=== PATIENT | female | born 1960 | race Caucasian/White ===

== ENCOUNTER 2017-10-11 11:25 | Emergency (ER) | payer MEDICARE ==
[~2017-10-11] VITALS: Ht 167.6 cm; Wt 75.0 kg
[2017-10-11 11:30] VITALS: BP 141/73; PULSE 49; RESP 18; TEMP 97.4; O2SAT 99
[2017-10-11] MEDS ORDERED: SODIUM CHLOR 0.9% 1000 ML INJ 1,000 ML IV SCH (11:48)
--- NOTE | 2017-10-11 11:55 | PD ---
HPI Chief Complaint: Flank/Kidney Pain Time Seen by Provider: 11:41 Travel History International Travel<30 days: No Contact w/Intl Traveler<30days: No Traveled to known affect area: No History of Present Illness HPI 57-year-old female presents to the emergency department for evaluation of epigastric and right upper quadrant abdominal pain. 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 She states she follows with a specialist in [place]. She is here for the winter. She will returning to [place] on October 21. She was going to wait to be seen when she went back [place], but states the pain worsened today. She states if she holds area , the pain will be slightly better, no exacerbating factors. Patient also reports history of lupus, fibromyalgia, narcolepsy. She currently rates the pain 9/10 without radiation. She reports history of hysterectomy, appendectomy , cholecystectomy. Moderate severity. PFSH Past Medical History Gastrointestinal Disorders: Yes ("LIVER ISSUES") Tetanus Vaccination: Unknown Influenza Vaccination: No ?: Not Past Surgical History Appendectomy: Yes Cholecystectomy: Yes Hysterectomy: Yes Social History Alcohol Use: No Tobacco Use: Yes Substance Use: No Allergies-Medications (Allergen,Severity, Reaction): Coded Allergies: aspirin (Verified Allergy, Unknown, 10/11/17) red dye (Verified Allergy, Unknown, 10/11/17) Reported Meds & Prescriptions Reported Meds & Active Scripts Active Active Prescriptions or Reported Medications Unobtainable Review of Systems Except as stated in HPI: all other systems reviewed are Neg Physical Exam Narrative GENERAL: Well-nourished, well-developed female patient, afebrile SKIN: Focused skin assessment warm/dry. HEAD: Normocephalic. Atraumatic EYES: No scleral icterus. No injection or drainage. NECK: Supple, trachea midline. No JVD or lymphadenopathy. CARDIOVASCULAR: Regular rate and rhythm without murmurs, gallops, or rubs. RESPIRATORY: Breath sounds equal bilaterally. No accessory muscle use. Lung sounds are clear to auscultation GASTROINTESTINAL: Abdomen soft and nondistended. Patient has tenderness over the epigastric and right upper quadrant MUSCULOSKELETAL: No cyanosis, or edema. BACK: Nontender without obvious deformity. No CVA tenderness. Data Data Last Documented VS Vital Signs Date Time Temp Pulse Resp B/P (MAP) Pulse Ox O2 Delivery O2 Flow Rate FiO2 10/11/17 17:06 48 16 112/68 (83) 97 Room Air 10/11/17 11:30 97.4 Orders Orders Complete Blood Count With Diff (10/11/17 11:48) Comprehensive Metabolic Panel (10/11/17 11:48) Lipase (10/11/17 11:48) Prothrombin Time / Inr (Pt) (10/11/17 11:48) Act Partial Throm Time (Ptt) (10/11/17 11:48) Urinalysis - C+S If Indicated (10/11/17 11:48) Iv Access Insert/Monitor (10/11/17 11:48) Ecg Monitoring (10/11/17 11:48) Oximetry (10/11/17 11:48) Morphine Inj (Morphine Inj) (10/11/17 12:00) Ondansetron Inj (Zofran Inj) (10/11/17 12:00) Sodium Chlor 0.9% 1000 Ml Inj (Ns 1000 M (10/11/17 11:48) Sodium Chloride 0.9% Flush (Ns Flush) (10/11/17 12:00) Electrocardiogram (10/11/17 11:48) Ct Abd/Pel W Iv Contrast(Rout) (10/11/17 ) Iohexol 350 Inj (Omnipaque 350 Inj) (10/11/17 16:41) Ed Discharge Order (10/11/17 17:14) Labs Laboratory Tests Test 10/11/17 12:00 White Blood Count 7.3 TH/MM3 Red Blood Count 4.31 MIL/MM3 Hemoglobin 13.7 GM/DL Hematocrit 39.6 % Mean Corpuscular Volume 91.9 FL Mean Corpuscular Hemoglobin 31.8 PG Mean Corpuscular Hemoglobin Concent 34.6 % Red Cell Distribution Width 12.7 % Platelet Count 215 TH/MM3 Mean Platelet Volume 8.3 FL Neutrophils (%) (Auto) 54.1 % Lymphocytes (%) (Auto) 34.1 % Monocytes (%) (Auto) 6.0 % Eosinophils (%) (Auto) 5.2 % Basophils (%) (Auto) 0.6 % Neutrophils # (Auto) 3.9 TH/MM3 Lymphocytes # (Auto) 2.5 TH/MM3 Monocytes # (Auto) 0.4 TH/MM3 Eosinophils # (Auto) 0.4 TH/MM3 Basophils # (Auto) 0.0 TH/MM3 CBC Comment DIFF FINAL Differential Comment Prothrombin Time 10.3 SEC Prothromb Time International Ratio 1.0 RATIO Activated Partial Thromboplast Time 25.9 SEC Urine Color YELLOW Urine Turbidity CLEAR Urine pH 6.5 Urine Specific [place] 1.011 Urine Protein NEG mg/dL Urine Glucose (UA) NEG mg/dL Urine Ketones NEG mg/dL Urine Occult Blood NEG Urine Nitrite NEG Urine Bilirubin NEG Urine Urobilinogen LESS THAN 2.0 MG/DL Urine Leukocyte Esterase NEG Urine RBC LESS THAN 1 /hpf Urine WBC LESS THAN 1 /hpf Urine Squamous Epithelial Cells 3 /hpf Urine Transitional Epithelial Cells <1 /hpf Urine Bacteria RARE /hpf Microscopic Urinalysis Comment CULT NOT INDICATED Blood Urea Nitrogen 12 MG/DL Creatinine 1.02 MG/DL Random Glucose 74 MG/DL Total Protein 7.2 GM/DL Albumin 3.6 GM/DL Calcium Level 8.5 MG/DL Alkaline Phosphatase 85 U/L Aspartate Amino Transf (AST/SGOT) 16 U/L Alanine Aminotransferase (ALT/SGPT) 20 U/L Total Bilirubin 0.4 MG/DL Sodium Level 143 MEQ/L Potassium Level 4.0 MEQ/L Chloride Level 106 MEQ/L Carbon Dioxide Level 28.8 MEQ/L Anion Gap 8 MEQ/L Estimat Glomerular Filtration Rate 56 ML/MIN Lipase 204 U/L MDM Medical Decision Making Medical Screen Exam Complete: Yes Emergency Medical Condition: Yes Medical Record Reviewed: Yes Interpretation(s) CT abdomen/pelvis - CONCLUSION: Negative for an acute process. History of cholecystectomy. No inflammatory changes identified. Differential Diagnosis Pancreatitis versus liver embolism versus UTI Narrative Course 57-year-old female presents to the emergency department for evaluation of epigastric and right upper quadrant pain. Patient does have history of cholecystectomy. EKG, CBC, CMP, lipase, PTT, PT/INR UA are ordered and pending. CT abdomen/pelvis with IV contrast is ordered and pending. Patient is given normal saline 1 L IV bolus, Zofran 4 mg IV, morphine 4 mg IV. EKG shows sinus bradycardia, heart rate 41, no acute ST changes. Patient reports history of bradycardia. CBC shows no acute abnormality. CMP shows no acute abnormality. Lipase is 204. Coags are unremarkable. UA is negative for acute infection. CT abdomen/pelvis is negative for acute process. I gave the patient a copy of her CT results. She is to follow-up with her specialist when she returns home. She is return here for any acute worsening symptoms. She verbalizes agreement. The patient was discharged in stable condition with instructions, including return instructions and follow up instructions. Diagnosis Primary Impression: Abdominal pain Qualified Codes: R10.11 - Right upper quadrant pain Referrals: Primary Care Physician call for appointment Patient Instructions: Abdominal Pain (ED), General Instructions Additional Instructions: [id number] ibuprofen every 6-8 hours as needed for pain. Follow-up with a primary care physician. Return to the emergency department for any acute worsening of symptoms. Med/Other Pt SpecificInfo: No Change to Meds Scripts Unable to Obtain Active Prescriptions or Reported Meds Disposition: 01 DISCHARGE HOME Condition: Stable Maria Luz Johnson Oct 11, 2017 11:55
[2017-10-11] MEDS ORDERED: SODIUM CHLORIDE 0.9% FLUSH 10 ML FLUSH IV FLUSH PRN (12:00)
[2017-10-11] MEDS ORDERED: ONDANSETRON HCL 4 MG/2 ML VIAL IVP ONE (12:00)
[2017-10-11] MEDS ORDERED: MORPHINE SULFATE 4 MG/ML INJ IV PUSH ONE (12:00)
[2017-10-11 12:08] VITALS: BP 136/64; PULSE 51; RESP 17; O2SAT 97
[2017-10-11 12:28] LABS: AUTOMATED NEUTROPHIL # 3.9 TH/MM3 (1.8-7.7); BASOPHIL % 0.6 % (0.0-2.0); EOSINOPHIL # 0.4 TH/MM3 (0-0.4); EOSINOPHIL % 5.2 % (0.0-4.0); HEMATOCRIT 39.6 % (35.0-46.0); HEMOGLOBIN 13.7 GM/DL (11.6-15.3); LYMPH % 34.1 % (9.0-44.0); LYMPHOCYTE # 2.5 TH/MM3 (1.0-4.8); MEAN CELL VOLUME 91.9 FL (80.0-100.0); MEAN CORPUSCULAR HEMOGLOBIN 31.8 PG (27.0-34.0); MEAN CORPUSCULAR HGB CONC 34.6 % (32.0-36.0); MEAN PLATELET VOLUME 8.3 FL (7.0-11.0); MONOCYTE # 0.4 TH/MM3 (0-0.9); NEUT % 54.1 % (16.0-70.0); PLATELET COUNT 215 TH/MM3 (150-450); RED BLOOD COUNT 4.31 MIL/MM3 (4.00-5.30); RED CELL DISTRIBUTION WIDTH 12.7 % (11.6-17.2); WHITE BLOOD COUNT 7.3 TH/MM3 (4.0-11.0)
[2017-10-11 12:38] LABS: PROTHROMBIN TIME - PATIENT 10.3 SEC (9.8-11.6)
[2017-10-11 12:49] LABS: BACTERIA, URINE RARE /hpf; BILIRUBIN, URINE NEG (NEG); BLOOD, URINE NEG (NEG); GLUCOSE,URINE NEG (NEG); KETONE, URINE NEG (NEG); NITRITE,URINE NEG (NEG); PH, URINE 6.5 (5.0-8.5); SQUAMOUS EPITHELIAL CELL URINE 3 /hpf (0-5); TRANSITIONAL EPI CELLS, URINE <1 /hpf; URINE COLOR YELLOW (YELLW/STRAW); URINE LEUKOCYTE ESTERASE NEG (NEG)
[2017-10-11 12:50] LABS: ALBUMIN 3.6 GM/DL (3.4-5.0); AST (GOT) 16 U/L (15-37); BICARBONATE 28.8 MEQ/L (21.0-32.0); BLOOD UREA NITROGEN 12 MG/DL (7-18); CALCIUM 8.5 MG/DL (8.5-10.1); CHLORIDE 106 MEQ/L (98-107); CREATININE 1.02 MG/DL (0.50-1.00); GLOMERULAR FILTRATION RATE 56 ML/MIN (>89); GLUCOSE,RANDOM 74 MG/DL (74-106); SODIUM (NA) 143 MEQ/L (136-145)
[2017-10-11 12:51] LABS: ALT (GPT) 20 U/L (10-53)
[2017-10-11 12:53] LABS: ALKALINE PHOSPHATASE 85 U/L (45-117); TOTAL BILIRUBIN ADULT 0.4 MG/DL (0.2-1.0); TOTAL PROTEIN 7.2 GM/DL (6.4-8.2)
[2017-10-11 14:32] VITALS: BP 134/66; PULSE 46; RESP 15; O2SAT 97
[2017-10-11] MEDS ORDERED: IOHEXOL 350 MG/ML 10 ML VIAL (for RAD DIAG) IVCONTRAST ONE (16:41)
--- NOTE | 2017-10-11 16:53 | RADRPT ---
EXAM DATE/TIME: 10/11/2017 16:28 [facility] COMPARISON: No previous studies available for comparison. INDICATIONS : Right flank pain, dark urine. IV CONTRAST: 80 cc Omnipaque 350 (iohexol) IV ORAL CONTRAST: No oral contrast ingested. RADIATION DOSE: 7.87 CTDIvol (mGy) MEDICAL HISTORY : Liver embolism SURGICAL HISTORY : Appendectomy. Cholecystectomy.Hysterectomy. ENCOUNTER: Initial ACUITY: 1 day PAIN SCALE: 6/10 LOCATION: Right flank TECHNIQUE: Volumetric scanning of the abdomen and pelvis was performed. Using automated exposure control and ad justment of the mA and/or kV according to patient size, radiation dose was kept as low as reasonably achievable to obtain optimal diagnostic quality images. DICOM format image data is available electro nically for review and comparison. FINDINGS: LOWER LUNGS: The visualized lower lungs are clear. Mild emphysematous changes LIVER: Homogeneous density without lesion. There is no dilation of the biliary tree. Gallbladder surgicall y absent SPLEEN: Normal size without lesion. PANCREAS: Within normal limits. KIDNEYS: Normal in size and shape. There is no mass, stone or hydronephrosis. ADRENAL GLANDS: Within normal limits. VASCULAR: There is no aortic aneurysm. BOWEL/MESENTERY: The stomach, small bowel, and colon demonstrate no acute abnormality. There is no free intraperitone al air or fluid. ABDOMINAL WALL: Within normal limits. RETROPERITONEUM: There is no lymphadenopathy. BLADDER: No wall thickening or mass. REPRODUCTIVE: Within normal limits. INGUINAL: There is no lymphadenopathy or hernia. MUSCULOSKELETAL: Within normal limits for patient age. CONCLUSION: Negative for an acute process. History of cholecystectomy. No inflammatory changes identified. Jose oCncepcion MD FACR on October 11, 2017 at 16:48 Board Certified Radiologist. This report was verified electronically.
[2017-10-11 17:06] VITALS: BP 112/68; PULSE 48; RESP 16; O2SAT 97
--- NOTE | 2017-10-13 00:32 | EKG ---
Date Performed: 10/11/2017 Time Performed: 12:01:49 PTAGE: 57 years EKG: SINUS BRADYCARDIA BORDERLINE ECG NO PREVIOUS TRACING DOCTOR: Zain Vincent Interpretating Date/Time 10/13/2017 00:17:18
== END 2017-10-11 17:27 | disposition home or self-care (01) ==
LOC: NEPC 11:25
DX: R10.13 Epigastric pain (principal); R10.11 Right upper quadrant pain; R00.1 Bradycardia, unspecified; M32.9 Systemic lupus erythematosus, unspecified; M79.7 Fibromyalgia; G47.419 Narcolepsy without cataplexy; Z72.0 Tobacco use; Z90.49 Acquired absence of other specified parts of digestive tract; Z88.6 Allergy status to analgesic agent
CPT/HCPCS: 74177; 80053; 81001; 83690; 85025; 85610; 85730; 93005; 96361; 96374; 96375; 99285; J2270; J2405; J7030; Q9967